=== PATIENT | male | born 1980 | race Caucasian/White ===

== ENCOUNTER 2024-02-07 14:32 | Emergency (ER) | payer OTHER, SELFPAY ==
--- NOTE | ~2024-02-07 | XR_ITS ---
EXAMINATION: XR chest 2V DATE: 02/07/2024 15:07 INDICATION: Dizziness. Confusion. TECHNIQUE: Frontal and lateral views of the chest were obtained on 3 radiographs. COMPARISON: None. FINDINGS: There is no pneumonia, pleural effusion, or pneumothorax. The heart size is normal. IMPRESSION: 1. No acute cardiopulmonary disease. Reviewed, dictated and finalized at location A.
[2024-02-07 14:36] VITALS: BP 181/104; PULSE 79; RESP 16; TEMP 36.4; O2SAT 100
--- NOTE | 2024-02-07 14:42 | ECG_ITS ---
Test Date: 2024-02-07 14:46:34 Measurements Intervals [place] Rate: 72 P: 46 CO: 176 QRS: -14 QRSD: 99 T: 17 QT: 359 QTc: 394 Interpretive Statements SINUS RHYTHM WITH SINUS ARRHYTHMIA OTHERWISE NORMAL ECG No previous ECG available for comparison Electronically Signed On 02-08-2024 10:13:24 CDT by Emory Nguyen M.D.
[2024-02-07 14:58] LABS: Basophils Percent Auto 0.5 % (0.2-1.2); Eosinophils Absolute Auto 0.2 K/mm3 (0-0.3); Eosinophils Percent Auto 1.9 % (0-4.4); Hematocrit 48.5 % (42.0-52.0); Hemoglobin 16.3 g/dL (14.0-18.0); Immature Granulocyte Absolute 0.04 K/mm3 (0.00-0.031); Immature Granulocyte Percent A 0.5 % (0-0.5); Lymphocytes Percent Auto 24.4 % (18.3-44.2); Mean Corpuscular HGB Conc 33.6 g/dl (32-36); Mean Corpuscular Hemoglobin 29.9 pg (26-34); Monocytes Absolute Auto 0.6 K/mm3 (0.1-0.6); Monocytes Percent Auto 7.5 % (2.6-8.5); Neutrophils Absolute Auto 5.6 K/mm3 (1.3-6.7); Neutrophils Percent Auto 65.2 % (45.5-73.1); Platelet Count Result 246 k/mm3 (150-375); Red Blood Count 5.45 M/mm3 (4.6-6.20); Red Cell Distribution Width 12.2 % (11.5-14.5); White Blood Count 8.6 K/mm3 (4.5-10.0)
--- NOTE | 2024-02-07 14:58 | ED.GENADULT ---
HPI - General Adult General Chief complaint: Dizziness Stated complaint: dizziness, fatigue Time Seen by Provider: 02/07/24 14:47 History of Present Illness HPI narrative: Pt presents with numerous complaints. Pt states that he has had periods of confusion lasting a couple of seconds and dizziness lasting a couple of seconds. Both of these are intermittent but are occurring more frequently. Pt has had some nasal congestion and wonders if it is ralted to this. Pt notices some intermittent palpitations in chest but not sure if it is anxiety. 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 Pt not sure if it is stress related. Related Data Allergies Allergy/AdvReac Type Severity Reaction Status Date / Time No Known Allergies Allergy Verified 02/07/24 14:36 Review of Systems Review of Systems: All systems reviewed & are unremarkable except as noted in HPI and below PMFSH Family History Family History (Updated 09/24/10 @ 14:38 by DOCTOR UNKNOWN) Other Diabetes mellitus Social History Social History Alcohol intake: never Exam Const: General: healthy appearing and no acute distress Nutritional Appearance: well nourished Orientation/consciousness: patient oriented x3 Limitations: no limitations HENMT: Head: normal to inspection Face/Nose/Sinus: Normal external nose present Face and sinus: normal facial exam Mouth: Yes Normal oral and palatal mucosa present Eyes: Conjunctivae: conjunctivae normal Pupils: Equal, round and reactive pupils present EOM: EOMs intact bilaterally Neck: Neck: normal visual inspection and no lymphadenopathy Chest: Chest palpation & inspection: normal inspection of the chest Resp: Effort & Inspection: normal respiratory effort Auscultation: clear to auscultation bilaterally Cardio: Rate: regular rate Rhythm: regular rhythm GI: GI Palp: Yes Soft to palpation and No Tenderness to palpation present (GI) Auscultation: normal bowel sounds Skin: General skin exam: normal color Rashes: no rashes Wounds: no wounds Neuro: General: patient oriented x3, moves all extremities, no meningeal signs and no focal motor deficits Cranial nerves: Yes Nystagmus not present Speech: normal speech Extrem: General: normal to inspection and no clubbing, cyanosis or edema Psych: Mental Status: mental status grossly normal Affect: normal affect Attitude: cooperative Course Vital Signs Vital signs: Vital Signs Temperature 97.5 F L 02/07/24 14:36 Pulse Rate 79 02/07/24 14:36 Respiratory Rate 16 02/07/24 14:36 Blood Pressure 181/104 H 02/07/24 14:36 Pulse Oximetry 100 02/07/24 14:36 Temperature 98.1 F 02/07/24 16:31 Pulse Rate 78 02/07/24 16:31 Respiratory Rate 14 02/07/24 16:31 Blood Pressure 129/84 02/07/24 16:31 Pulse Oximetry 98 02/07/24 16:31 Medical Decision Making MDM Narrative Medical decision making narrative: pt presents with several brief intermittent non specific symptoms which are increasing in frequency. Not sure of etiolgy, will check some labs and cxr and go from there. Vital Signs Vital Signs: Vital Signs Temperature 97.5 F L 02/07/24 14:36 Pulse Rate 79 02/07/24 14:36 Respiratory Rate 16 02/07/24 14:36 Blood Pressure 181/104 H 02/07/24 14:36 Pulse Oximetry 100 02/07/24 14:36 Temperature 98.1 F 02/07/24 16:31 Pulse Rate 78 02/07/24 16:31 Respiratory Rate 14 02/07/24 16:31 Blood Pressure 129/84 02/07/24 16:31 Pulse Oximetry 98 02/07/24 16:31 Lab Data 02/07/24 14:51 02/07/24 14:51 Labs: Lab Results 02/07/24 Range/Units 14:51 WBC 8.6 (4.5-10.0) K/mm3 RBC 5.45 (4.6-6.20) M/mm3 Hgb 16.3 (14.0-18.0) g/dL Hct 48.5 (42.0-52.0) % MCV 89.0 (80-100) fl MCH 29.9 (26-34) pg MCHC 33.6 (32-36) g/dl RDW 12.2 (11.5-14.5) % Plt Count 246 (150-375) k/mm3 MPV 9.0 (7.4-10.4) fl Immature Gran % (Au
[2024-02-07 15:10] LABS: Alanine Aminotransferase 50 U/L (6-50); Albumin Level 4.8 g/dL (3.5-5.1); Alkaline Phosphatase 63 U/L (38-126); Anion Gap 10 mmol/L (4-12); Aspartate Amino Transferase 32 U/L (17-59); Bilirubin,Total 0.9 mg/dL (0.2-1.3); Blood Urea Nitrogen 15 mg/dL (9-20); Calcium 9.5 mg/dL (8.4-10.2); Carbon Dioxide 25 mmol/L (22-30); Chloride 100 mmol/L (98-107); Estimated CRCL calculation 148 ml/min; Estimated Glomerular Filt Rate > 60; Glucose 96 mg/dL (65-110); Potassium 3.8 mmol/L (3.4-5.0); Sodium 135 mmol/L (137-145)
[2024-02-07 15:56] VITALS: BP 133/86; PULSE 84; RESP 19; O2SAT 97
[2024-02-07 16:31] VITALS: BP 129/84; PULSE 78; RESP 14; TEMP 36.7; O2SAT 98
== END 2024-02-07 16:30 | disposition home or self-care (01) ==
PROVIDERS: Emergency Provider Emergency Medicine
DX: R40.4 Transient alteration of awareness (principal)
CPT/HCPCS: 36415; 71046; 80053; 85025; 93005; 99284

== ENCOUNTER 2024-08-29 13:38 | Outpatient (CLI) | payer OTHER, SELFPAY ==
--- OUTSIDE RECORDS SUMMARY | 2024-08-29 13:46 | XMS_ITS | Referral Summary ---
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 02/20/2019 Social History Tobacco Use Types Packs/Day Years Used Date Smoking Tobacco: Former Cigarettes 1 16.9 0 04/18/1999 - 02/25/2016 Smokeless Tobacco: Never Tobacco Cessation:Counseling Given: Not Answered Personal Safety Answer Date Recorded Getting School Help Needed Not on file 06/19 Sex and Gender Information Value Date Recorded Sex Assigned at Not on file Legal Sex Male 8:26 AM CDT Gender Identity Male 12/31/2022 8:33 AM CDT Sexual Orientation Straight 12/31/2022 8: 33 AM CDT Last Filed Vital Signs Vital Sign Reading Time Taken Comments Blood Pressure - - Pulse - - Temperature - - Respiratory Rate - - Oxygen Saturation - - Inhaled Oxygen Concentration - - Weight 120.2 kg (265 lb) 12/31/2022 12:56 PM CDT Height 190.5 cm (6' 3 ) 12/31/2022 12:56 PM CDT Body Mass Index 33.12 12/31/2022 12:56 PM CDT Plan of Treatment Not on file Insurance [employer] ALLEGIANCE C[employer] ALLEGIANCE Care Teams Polygraph Examiner Relationship Specialty Start Date End Date No, Physician PCP - General 12/31/22
--- OUTSIDE RECORDS SUMMARY | 2024-08-29 13:46 | XMS_ITS | Clinical Summary ---
Author Organization [facility] Address [address] [place] [address] Care Team Providers Care Assistant Construction Superintendent Name Role Phone Bk Blankenship MD Primary Care Provider [phone] Allergies No known active allergies Medications multivitamin (DAILY-PATRICK) tablet Take 1 Tablet by mouth daily. Active cholecalciferol, vitamin D3, 1,000 unit Take 5,000 Units by mouth daily. Active OMEGA-3 FATTY ACIDS-FISH OIL ORAL Take by mouth. Activ e fluticasone propionate (FLONASE) 50 mcg/spray [place], Suspension nasal inhalerIndicatio ns:Sensation of fullness in ear, unspecified laterality Administer 2 Sprays in each nostril daily. 16 Gram 4 Active propranoloL (INDERAL) 20 mg tablet Take 1 Tablet (20 mg) by mouth 1 time daily as needed for Other (See Comment) (anxiety). 30 Tablet 4 Active cetirizine (ZyrTEC) 10 mg tablet Take 1 Tablet (10 mg) by mouth daily. 90 Tablet 4 Active amoxicillin (AMOXIL) 875 mg tabletIndication s:Acute pharyngitis, unspecified etiology Take 1 Tablet (875 mg) by mouth every 12 hours. 20 Tablet 4 Active Active Problems Problem Noted Date Diagnosed Date Seasonal allergic rhinitis 02/08/2024 Social phobia involving fear of public speaking 02/20/2019 Resolved Problems Problem Noted Date Diagnosed Date Resolved Date Social phobia involving fear of public speaking 02/20/2019 02/08/2024 Encounters Date Type Department Care Team Description 08/21/2024 External Device Data [facility]STRACTION Provider, Abstract 07/17/2024 External Device Data [facility] Provider, Abstract 06/26/2024 External Device Data [facility] Provider, Abstract 06/26/2024 External Device Data [facility] Provider, Abstract 06/12/2024 External Device Data [facility]CTION Provider, Abstract from Last 3 Months Immunizations Immunization Administration Dates Next Due (ADACEL/BOOSTRIX)(10 YR UP) TDAP VACCINE, 0.5ML, IM 04/18/2016 INFLUENZA VACCINE QUADRIVALENT 6 MOS UP IM 02/20,02/13/2018 Family History Medical History Relation Name Comments Unknown Brother drug addiction No Known Problems Daughter 1 No Known Problems Daughter 2 No Known Problems Father Unknown Maternal Grandfather Diabetes Maternal Grandmother Unknown Maternal Grandmother No Known Problems Mother Colon Cancer Paternal Aunt Heart Disease Paternal Grandfather Unknown Paternal Grandfather Colon Cancer Paternal Grandmother Estela Heart Disease Paternal Grandmother Estela Cancer Paternal Uncle brain cancer No Known Problems Sister No Known Problems Son 1 No Known Problems Son 2 Relation Name Status Comments Brother Daughter 1 Alive Daughter 2 Alive Father Alive Maternal Grandfather Maternal Grandmother Mother Alive Paternal Aunt Alive Paternal Grandfather Paternal Grandmother Estela Alive Paternal Uncle Sister Alive Son 1 Alive Son 2 Alive Social History Tobacco Use Types Packs/Day Years Used Date Smoking Tobacco: Former Cigarettes 1 15 1 04/26/2000 - 02/25/2016 Smokeless Tobacco: Never Tobacco Cessation:Counseling Given: Not Answered Alcohol Use Standard Drinks/Week Comments Yes 0 (1 standard drink = 0.6 oz pur e alcohol) 1-2 per month Sex and Gender Information Value Date Recorded Sex Assigned at Not on file Legal Sex Male 12:07 AM CDT Gender Identity Not on file Sexual Orientation Not on file Last Filed Vital Signs Vital Sign Reading Time Taken Comments Blood Pressure 128/70 02/21/2024 9:05 AM REINSURANCE CLERK Pulse 71 02/21/2024 9:05 AM REINSURANCE CLERK Temperature 36.5 C (97.7 F) 02/21/2024 9:05 AM REINSURANCE CLERK Respiratory Rate 18 02/20/2019 7:31 AM REINSURANCE CLERK Oxygen Saturation 98% 02/21/2024 9:05 AM REINSURANCE CLERK Inhaled Oxygen Concentration - - Weight 121.6 kg (268 lb) 02/21/2024 9:05 AM REINSURANCE CLERK Height 188 cm (6' 2 ) 02/21/2024 9:05 AM REINSURANCE CLERK Body Mass Index 34.41 02/21/2024 9:05 AM REINSURANCE CLERK Plan of Treatment Health Maintenance Due Date Last Done Comments Pre-Diabetes and Diabetes Screening 1982 HEPATITIS B VACCINES (1 of 3 - 19+ 3-dose series) 2001 INFLUENZA VACCINE (#1) 2023 9, 02/13/2018 DTAP/TDAP/TD VACCINES (2 - Td or Tdap) 04/18/2026 04/18/2016 HPV VACCINES Aged Out No longer eligi ble based on patient's age to complete this topic Insurance ALLEGIANCE OPEN ACCESS ALLEGIANCE OPEN ACCESS Care Teams Assistant Construction Superintendent Relationship Specialty Start Date End Date Bk Blankenship MD [address] [place] [phone] PCP - General Internal Medicine 02/13/18
--- OUTSIDE RECORDS SUMMARY | 2024-08-29 13:46 | XMS_ITS | Clinical Summary ---
Author Organization [facility] Address [address] [place] [address] Care Team Providers Care Basket Assembler Name Role Phone No, Physician Primary Care Provider [phone] Allergies No known active allergies Medications propranoloL (INDERAL) 40 mg tablet 11/30/2018 Active Active Problems Problem Noted Date Diagnosed Date Social phobia involving fear of public speaking 02/20/2019 Family History Medical History Relation Name Comments Obesity Mother Laure Obesity Sister Maribeth Relation Name Status Comments Mother Laure Sister Maribeth Social History Tobacco Use Types Packs/Day Years [...] Orientation Straight 12/31/2022 8: 33 AM CDT Obstetrics History Last Filed Vital Signs Vital Sign Reading Time Taken Comments Blood Pressure - - Pulse - - Temperature - - Respiratory Rate - - Oxygen Saturation - - Inhaled Oxygen Concentration - - Weight 120.2 kg (265 lb) 12/31/2022 12:56 PM CDT Height 190.5 cm (6' 3 ) 12/31/2022 12:56 PM CDT Body Mass Index 33.12 12/31/2022 12:56 PM CDT Plan of Treatment Health Maintenance Due Date Last Done Comments Depression Screening 1982 Hepatitis C Screening 1982 Varicella Vaccines (1 of 2 - 13+ 2-dose series) 10/12/1995 Hepatitis B Screening 2000 Regular Well Visit/Exam 18-64 2000 Covid-19 Vaccine (3 - 2023-2 5 season) 2023 07/31/2020, 06/30/2020 Influenza Vaccine (Season Ended) 2024 02/20/2019, 02/13/2018 DTaP/Tdap/Td Vaccine (2 - Td or Tdap) 04/18/2026 04/18/2016, 12/05/1996 HPV Vaccines Aged Out No longer eligi ble based on patient's age to complete this topic Pneumococcal vaccine <65 Aged Out No longer eligible based on patient's age to complete this topic Insurance [employer] Care Teams Basket Assembler Relationship Specialty Start Date End Date No, Physician PCP - General 12/31/22
[2024-08-29 14:22] LABS: Basophils Percent Auto 0.4 % (0.2-1.2); Eosinophils Absolute Auto 0.3 K/mm3 (0-0.3); Eosinophils Percent Auto 4.5 % (0-4.4); Hematocrit 48.9 % (42.0-52.0); Hemoglobin 15.9 g/dL (14.0-18.0); Immature Granulocyte Absolute 0.03 K/mm3 (0.00-0.031); Immature Granulocyte Percent A 0.4 % (0-0.5); Lymphocytes Absolute Auto 2.41 K/mm3 (0.9-3.2); Lymphocytes Percent Auto 35.2 % (18.3-44.2); Mean Corpuscular HGB Conc 32.5 g/dl (32-36); Mean Corpuscular Hemoglobin 29.7 pg (26-34); Mean Corpuscular Volume 91.2 fl (80-100); Mean Platelet Volume 9.4 fl (7.4-10.4); Monocytes Absolute Auto 0.5 K/mm3 (0.1-0.6); Monocytes Percent Auto 7.9 % (2.6-8.5); Neutrophils Absolute Auto 3.5 K/mm3 (1.3-6.7); Neutrophils Percent Auto 51.6 % (45.5-73.1); Platelet Count Result 249 k/mm3 (150-375); Red Blood Count 5.36 M/mm3 (4.6-6.20); White Blood Count 6.9 K/mm3 (4.5-10.0)
[2024-08-29 17:02] LABS: Alanine Aminotransferase 24 U/L (6-50); Albumin Level 4.9 g/dL (3.5-5.1); Alkaline Phosphatase 74 U/L (38-126); Anion Gap 11 mmol/L (4-12); Aspartate Amino Transferase 32 U/L (17-59); Bilirubin,Total 0.7 mg/dL (0.2-1.3); Blood Urea Nitrogen 15 mg/dL (9-20); Calcium 9.4 mg/dL (8.4-10.2); Carbon Dioxide 24 mmol/L (22-30); Chloride 102 mmol/L (98-107); Cholesterol 226 mg/dL (0-200); Estimated Glomerular Filt Rate > 60; Glucose 94 mg/dL (65-110); HDL Direct 56 mg/dL; Potassium 4.3 mmol/L (3.4-5.0); Sodium 137 mmol/L (137-145); Triglycerides 79 mg/dL (<150)
[2024-08-29 17:14] LABS: LDL Cholesterol Direct 127 mg/dL
[2024-08-29 17:15] LABS: Vitamin D 25 Hydroxy 88.3 ng/mL
[2024-08-29 17:31] LABS: Thyroid Stimulating Hormone 0.864 uIU/mL (0.465-4.680)
[2024-08-29 18:37] LABS: Hemoglobin A1C 5.1 % (<5.7)
== END 2024-08-29 13:39 | disposition home or self-care (01) ==
LOC: ANHLAB 13:39
PROVIDERS: PCP Family Medicine; Visit Provider Family Medicine
DX: R00.2 Palpitations (principal); R55 Syncope and collapse; Z00.00 Encounter for general adult medical examination without abnormal findings; H81.10 Benign paroxysmal vertigo, unspecified ear; E66.9 Obesity, unspecified
CPT/HCPCS: 36415; 80053; 80061; 82306; 82607; 83036; 84443; 85025